=== PATIENT | male | born 1970 | race Caucasian/White ===

== ENCOUNTER 2016-12-21 20:51 | Emergency (ER) | payer MEDICARE, MEDICAID ==
[~2016-12-21] VITALS: Ht 175.3 cm; Wt 71.8 kg
[2016-12-21 20:51] VITALS: BP 157/101
[~2016-12-21 20:51] MED LIST: DEPAKOTE; DIVA125T2 PO; HALO100A3 IM; LORA-446 PO; TRAZ50TA18 PO; thorazine
== END 2016-12-21 21:36 | disposition left against medical advice (07) ==
LOC: ED 21:30
DX: R05 Cough (principal); R06.02 Shortness of breath; Z53.21 Procedure and treatment not carried out due to patient leaving prior to being seen by health care provider
CPT/HCPCS: 93005

== ENCOUNTER 2017-07-09 18:01 | Emergency (ER) | payer MEDICARE, MEDICAID ==
[~2017-07-09] VITALS: Ht 175.3 cm; Wt 71.0 kg
[2017-07-09] MEDS ORDERED: ONDANSETRON ODT 4 MG ONE (18:55)
[2017-07-09 18:56] LABS: HEMATOCRIT 43.4 % (39.2-51.8); HEMOGLOBIN 14.6 g/dL (13.7-18.0)
[2017-07-09] MEDS ORDERED: ONDANSETRON ODT 4 MG PO ONE (19:00)
[2017-07-09 19:05] VITALS: BP 126/76
[2017-07-09 19:08] LABS: ASPARTATE AMINO TRANSFERASE 12 U/L (15-37); BLOOD UREA NITROGEN 11 mg/dL (7-18)
== END 2017-07-09 20:14 | disposition home or self-care (01) ==
LOC: ED 18:53
DX: R10.84 Generalized abdominal pain (principal); R11.2 Nausea with vomiting, unspecified; E78.00 Pure hypercholesterolemia, unspecified; I10 Essential (primary) hypertension
CPT/HCPCS: 36415; 80053; 83690; 85025; 99284; Q0162

== ENCOUNTER 2018-08-20 15:23 | Emergency (ER) | payer MEDICARE, MEDICAID ==
[~2018-08-20] VITALS: Ht 172.7 cm; Wt 88.0 kg
[~2018-08-20 15:23] MED LIST changes: -TRAZ50TA18 PO; +TRAZ50TA66 PO
[2018-08-20] MEDS ORDERED: KETOROLAC 30 MG/1 ML IM ONE (16:30)
[2018-08-20] MEDS ORDERED: KETOROLAC 30 MG/1 ML ONE (16:31)
[2018-08-20 17:51] VITALS: BP 136/89
== END 2018-08-20 17:53 | disposition home or self-care (01) ==
LOC: ED 17:46
DX: M25.511 Pain in right shoulder (principal); M79.601 Pain in right arm; I10 Essential (primary) hypertension; F41.1 Generalized anxiety disorder; F10.120 Alcohol abuse with intoxication, uncomplicated; Z76.0 Encounter for issue of repeat prescription
CPT/HCPCS: 73030; 96372; 99283; J1885

== ENCOUNTER 2021-04-21 12:45 | Emergency (ER) | payer MEDICAID, MEDICARE ==
--- NOTE | 2021-04-21 13:09 | NUR ---
NO ANSWER FROM [facility]OBBY
--- NOTE | 2021-04-21 13:20 | NUR ---
NO ANSWER FROM [facility]OBBY
== END 2021-04-21 13:33 | disposition left against medical advice (07) ==
LOC: ED 12:55
DX: Z53.21 Procedure and treatment not carried out due to patient leaving prior to being seen by health care provider (principal)

== ENCOUNTER 2021-04-22 16:57 | Emergency (ER) | payer MEDICARE, MEDICAID ==
[~2021-04-22] VITALS: Ht 180.3 cm; Wt 90.0 kg
[~2021-04-22 16:57] MED LIST changes: +OLANZAPINE ODT 10MG PO ONE
[2021-04-22 17:25] VITALS: BP 124/72
--- NOTE | 2021-04-22 17:28 | NUR ---
biba for schizophrenia/meth use today, a&o to self, denies SI/HI ermd [facility] at bedside for eval
[2021-04-22] MEDS ORDERED: OLANZAPINE ODT 10MG ONE (17:32)
--- NOTE | 2021-04-22 17:53 | NUR ---
pt ambulatory to dc desk with steady gait, nadn.
== END 2021-04-22 17:55 | disposition home or self-care (01) ==
LOC: ED 17:00
DX: R45.851 Suicidal ideations (principal); F15.129 Other stimulant abuse with intoxication, unspecified; I10 Essential (primary) hypertension; E78.00 Pure hypercholesterolemia, unspecified
CPT/HCPCS: 99281; 99283

== ENCOUNTER 2021-04-22 21:25 | Emergency (ER) | payer MEDICARE, MEDICAID ==
[~2021-04-22] VITALS: Ht 165.1 cm; Wt 65.7 kg
[~2021-04-22 21:25] MED LIST changes: -OLANZAPINE ODT 10MG PO ONE
[2021-04-22 21:52] VITALS: BP 135/85
--- NOTE | 2021-04-22 23:58 | NUR ---
NIL X 1
--- NOTE | 2021-04-23 00:43 | NUR ---
NIL X 2
--- NOTE | 2021-04-23 01:01 | NUR ---
NIL X 3
== END 2021-04-23 01:03 | disposition left against medical advice (07) ==
LOC: ED 21:30
DX: F29 Unspecified psychosis not due to a substance or known physiological condition (principal)
CPT/HCPCS: 99281